=== PATIENT | male | born 1965 | race Hispanic/Latino ===

== ENCOUNTER 2018-02-12 16:51 | Emergency (ER) | payer MEDICAID ==
[2018-02-12 16:56] VITALS: BP 116/83
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
== END 2018-02-12 23:00 | disposition left against medical advice (07) ==
LOC: ED 16:51
DX: R06.00 Dyspnea, unspecified (principal); Z53.21 Procedure and treatment not carried out due to patient leaving prior to being seen by health care provider
CPT/HCPCS: 71046

== ENCOUNTER 2018-04-26 08:13 | Emergency (ER) | payer MEDICAID ==
[~2018-04-26 08:13] MED LIST: ADRENALIN ONE; SODIUM BICARBONATE IV ONE
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
== END 2018-04-26 13:30 ==
LOC: ED 08:13
DX: I46.9 Cardiac arrest, cause unspecified (principal); Z87.891 Personal history of nicotine dependence
CPT/HCPCS: 31500; 92950; 99285; J0171